=== PATIENT | male | born 2000 | race Caucasian/White ===

== ENCOUNTER 2023-07-20 19:12 | Emergency (ER) | payer OTHER ==
[~2023-07-20] VITALS: Ht 177.8 cm; Wt 163.0 kg
--- NOTE | ~2023-07-20 | EKG ---
[facility] [address] [facility], [place] [address] Draft EKG completed, results pending confirmation PATIENT NAME: JULIO RICHARD Electrocardiogram DATE OF : [birth year] PHYSICIAN: PRELIMINARY REPORT #: [id number] REPORT IS CONFIDENTIAL AND NOT TO BE RELEASED WITHOUT AUTHORIZATION
[2023-07-20 19:31] LABS: BASOPHILS 0.9 % (0-2); EOSINOPHILS 2.3 % (0-6); HEMATOCRIT 42.6 % (35.0-50.0); HEMOGLOBIN 14.4 g/dL (12.0-18.0); LYMPHOCYTES 21.1 % (24-44); MCH 28.2 (27-36); MCHC 33.8 g/dl (30-36); MCV 83.6 fl (81-99); NEUTROPHILS 69.7 % (39-80); PLATELET COUNT 249 K/uL (140-440); RBC 5.09 M/ul (4.3-5.7); RDW 12.7 (10.5-15.0)
[2023-07-20 19:49] LABS: INR 1.01 (0.80-1.30); PROTIME 12.6 Sec (11.2-14.2)
[2023-07-20 19:53] LABS: ALBUMIN 3.6 g/dL (3.4-5.0); ALBUMIN/GLOBULIN RATIO 1.03 (1.1-2.4); ANION GAP 11.7 (7-21); BILIRUBIN, TOTAL 0.3 ng/dL (0.2-1.0); BUN/CREATININE RATIO 16.98 (6.0-28.6); CREATININE, SERUM 1.06 mg/dL (0.70-1.30); MAGNESIUM 1.9 mg/dL (1.8-2.4); POTASSIUM 3.7 mmol/L (3.5-5.1); PROTEIN, TOTAL 7.1 g/dL (6.4-8.2)
[2023-07-20 20:19] VITALS: BP 123/80
== END 2023-07-20 20:21 | disposition home or self-care (01) ==
LOC: ED 19:12
PROVIDERS: Family Medicine
DX: R07.89 Other chest pain (principal); I10 Essential (primary) hypertension
CPT/HCPCS: 36415; 71045; 80053; 83735; 83880; 85025; 85610; 93005; 93010; 99285-25

== ENCOUNTER 2023-11-04 12:28 | Emergency (ER) | payer OTHER ==
[~2023-11-04] VITALS: Ht 177.8 cm; Wt 167.6 kg
[2023-11-04 14:09] VITALS: BP 142/92
== END 2023-11-04 14:10 | disposition home or self-care (01) ==
LOC: ED 12:28
DX: S09.90XA Unspecified injury of head, initial encounter (principal); W01.10XA Fall on same level from slipping, tripping and stumbling with subsequent striking against unspecified object, initial encounter; I10 Essential (primary) hypertension
CPT/HCPCS: 99283

== ENCOUNTER 2024-04-14 12:22 | Emergency (ER) | payer OTHER ==
[~2024-04-14] VITALS: Ht 177.8 cm; Wt 155.7 kg
[2024-04-14 15:14] LABS: BILIRUBIN, URINE NEGATIVE (negative); BLOOD/HGB, URINE TRACE-I (Negative); KETONE, URINE NEGATIVE (Negative); LEUK ESTERASE, URINE NEGATIVE (negative); NITRITE, URINE NEGATIVE (negative)
[2024-04-14 15:21] LABS: CRYSTALS, URINE NONE SEEN (0-1+); EPITHELIAL CELLS, URINE SQUAMOUS 1+ /lpf (0-1+)
[2024-04-14 15:22] LABS: BACTERIA, URINE RARE /hpf (negative); CASTS, URINE NONE SEEN \\lpf; COLLECTION TYPE, URINE CLEAN CATCH; REFLEX CULTURE, URINE No (No)
[2024-04-14] MEDS ORDERED: ONDANSETRON ODT8 MG PO (15:34)
[2024-04-14 15:40] VITALS: BP 123/76
== END 2024-04-14 15:40 | disposition home or self-care (01) ==
LOC: ED 12:22
PROVIDERS: Emergency Medicine
DX: M79.18 Myalgia, other site (principal); I10 Essential (primary) hypertension
CPT/HCPCS: 81001; 99283

== ENCOUNTER 2024-06-02 06:58 | Emergency (ER) | payer OTHER ==
[~2024-06-02] VITALS: Ht 177.8 cm; Wt 157.0 kg
[~2024-06-02 06:58] MED LIST: ONDANSETRON ODT8 MG PO
[2024-06-02] MEDS ORDERED: LIDOCAINE & ANTACID 35 ML BTL PO ONE (07:30)
[2024-06-02] MEDS ORDERED: ONDANSETRON 4 MG TAB ODT SL ONE (07:30)
[2024-06-02 08:22] LABS: BASOPHILS 0.8 % (0-2); EOSINOPHILS 2.9 % (0-6); HEMATOCRIT 41.7 % (35.0-50.0); HEMOGLOBIN 14.4 g/dL (12.0-18.0); LYMPHOCYTES 29.7 % (24-44); MCHC 34.6 g/dl (30-36); MCV 83.8 fl (81-99); MONOCYTES 5.9 % (0-12); NEUTROPHILS 60.7 % (39-80); PLATELET COUNT 272 K/uL (140-440); RBC 4.98 M/ul (4.3-5.7); RDW 12.9 (10.5-15.0)
[2024-06-02 08:40] LABS: ALBUMIN 3.9 g/dL (3.4-5.0); ALBUMIN/GLOBULIN RATIO 1.15 (1.1-2.4); ANION GAP 12.6 (7-21); BILIRUBIN, TOTAL 0.5 ng/dL (0.2-1.0); BUN/CREATININE RATIO 10.41 (6.0-28.6); CALCIUM 9.3 mg/dL (8.5-10.1); CREATININE, SERUM 0.96 mg/dL (0.70-1.30); POTASSIUM 3.6 mmol/L (3.5-5.1); PROTEIN, TOTAL 7.3 g/dL (6.4-8.2)
[2024-06-02] MEDS ORDERED: PEPCID20 MG PO (10:11)
[2024-06-02 10:25] VITALS: BP 113/78
== END 2024-06-02 10:26 | disposition home or self-care (01) ==
LOC: ED 06:58
PROVIDERS: Emergency Medicine
DX: R10.13 Epigastric pain (principal); I10 Essential (primary) hypertension
CPT/HCPCS: 36415; 80053; 83690; 85025; 99284; A9270

== ENCOUNTER 2024-08-14 17:56 | Emergency (ER) | payer OTHER ==
[~2024-08-14] VITALS: Ht 177.8 cm; Wt 154.7 kg
[~2024-08-14 17:56] MED LIST changes: +PEPCID20 MG PO
[2024-08-14] MEDS ORDERED: BUSPIRONE HCL7.5 MG PO (18:20)
[2024-08-14] MEDS ORDERED: OLANZapine 10 MG TABDIS PO ONE (19:30)
[2024-08-14] MEDS ORDERED: ZYPREXA10 MG PO (20:28)
[2024-08-14 20:33] VITALS: BP 137/81
== END 2024-08-14 20:36 | disposition home or self-care (01) ==
LOC: ED 17:56
DX: F41.9 Anxiety disorder, unspecified (principal); F22 Delusional disorders; I10 Essential (primary) hypertension; Z79.899 Other long term (current) drug therapy
CPT/HCPCS: 99284; A9270

== ENCOUNTER 2024-10-19 14:15 | Emergency (ER) | payer OTHER ==
[~2024-10-19] VITALS: Ht 177.8 cm; Wt 160.2 kg
[~2024-10-19 14:15] MED LIST changes: +BUSPIRONE HCL7.5 MG PO; +ZYPREXA10 MG PO
[2024-10-19] MEDS ORDERED: DOXYCYCLINE HYCLATE 100 MG CAP PO ONE (15:15)
[2024-10-19] MEDS ORDERED: CEFTRIAXONE SOD 500 MG VIAL IM ONE (15:15)
[2024-10-19] MEDS ORDERED: DOXYCYCLINE HY100 MG PO (15:45)
[2024-10-19 15:59] VITALS: BP 142/75
[2024-10-19 17:16] LABS: N. GONORRRHOEAE BY PCR NOT DETECTED (NOT DETECT)
== END 2024-10-19 16:00 | disposition home or self-care (01) ==
LOC: ED 14:15
PROVIDERS: Emergency Medicine
DX: R30.0 Dysuria (principal); I10 Essential (primary) hypertension
CPT/HCPCS: 96372; 99283-25; J0696

== ENCOUNTER 2024-10-26 22:22 | Emergency (ER) | payer OTHER ==
[~2024-10-26] VITALS: Ht 177.8 cm; Wt 156.0 kg
[~2024-10-26 22:22] MED LIST changes: +DOXYCYCLINE HY100 MG PO
--- OUTSIDE RECORDS SUMMARY | 2024-10-26 22:28 | XMS ---
PreManage Notification: JULIO RICHARD Security Insecticide Sprayer Events No recent Security Events currently on file CRITERIA MET - [facility] - 2 Visits in 30 Days CARE PROVIDERS -, [facility]ist: Independent Film Maker Current [place] PHONE: [phone] -, [place]- Dentist: Independent Film Maker Current Pending Sale To [facility] PHONE: [phone] [facility]: [facility] FAMILY PHONE: [phone] Izzy has no Care Guidelines for this patient. E.D. VISIT COUNT (12 MO.) [address] [facility] TOTAL 6 NOTE: Visits indicate total known visits. ED/UCC VISIT TRACKING (12 MO.) 10/26/2024 22:22 [facility] [place] TYPE: Emergency COMPLAINT: - DENTAL PAIN 10/19/2024 14:16 [facility] [place] TYPE: Emergency COMPLAINT: - STD EXPOSURE DIAGNOSES: - Dysuria - Essential (primary) hypertension 08/14/2024 17:56 [facility] [place] TYPE: Emergency COMPLAINT: - ANXIETY DIAGNOSES: - Anxiety disorder, unspecified - Delusional disorders - Essential (primary) hypertension - Other intermediate teacher (current) drug therapy 06/02/2024 06:59 [facility] [place] TYPE: Emergency COMPLAINT: - ABDOMINAL PAIN DIAGNOSES: - Epigastric pain - Essential (primary) hypertension 04/14/2024 12:22 [facility] [place] TYPE: Emergency COMPLAINT: - FLANK PAIN DIAGNOSES: - Essential (primary) hypertension - Low back pain, unspecified - Myalgia, other site 11/04/2023 12:29 [facility] [place] TYPE: Emergency COMPLAINT: - HEAD INJURY DIAGNOSES: - Essential (primary) hypertension - Fall on same level from slipping, tripping and stumbling with subsequent striking against unspecified object, initial encounter - Unspecified injury of head, initial encounter INPATIENT VISIT TRACKING (12 MO.) No inpatient visits to display in this time frame [email or web address]
[2024-10-26] MEDS ORDERED: AMOX TR-K CLV1 EAC1 PO (22:41)
[2024-10-26] MEDS ORDERED: NAPROSYN500 MG PO (22:41)
[2024-10-26] MEDS ORDERED: TRAMADOL HCL 50 MG HOME.PACK PO ONE (22:45)
[2024-10-26] MEDS ORDERED: AMOXICILLIN/CLAVULANATE K 875 MG HOME.PACK PO ONE (22:45)
[2024-10-26 22:54] VITALS: BP 163/100
== END 2024-10-26 22:54 | disposition home or self-care (01) ==
LOC: ED 22:22
DX: K02.9 Dental caries, unspecified (principal); I10 Essential (primary) hypertension; Z79.899 Other long term (current) drug therapy
CPT/HCPCS: 99282; A9270

== ENCOUNTER 2025-01-06 16:20 | Emergency (ER) | payer OTHER ==
[~2025-01-06] VITALS: Ht 177.8 cm; Wt 150.4 kg
[~2025-01-06 16:20] MED LIST changes: +AMOX TR-K CLV1 EAC1 PO; +NAPROSYN500 MG PO
--- OUTSIDE RECORDS SUMMARY | 2025-01-06 16:27 | XMS ---
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 - 2 Visits in 30 Days CARE PROVIDERS -, [facility] Dentist: Shrimp Packer Current [place] PHONE: [phone] -, [place]- Dentist: Shrimp Packer Current [facility] PHONE: [phone] [facility]: [facility] FAMILY PHONE: [phone] Izzy has no Care Guidelines for this patient. E.D. VISIT COUNT (12 MO.) 6 [facility] [place] [facility] TOTAL 7 NOTE: Visits indicate total known visits. ED/UCC VISIT TRACKING (12 MO.) 01/06/2025 16:20 [facility] [place] TYPE: Emergency COMPLAINT: - SUICIDAL THOUGHTS 12/13/2024 10:09 [facility] [place] TYPE: Emergency DIAGNOSES: - Tension-type headache, unspecified, not intractable - MIGRAINE 10/26/2024 22:22 [facility] [place] TYPE: Emergency COMPLAINT: - DENTAL PAIN DIAGNOSES: - Dental caries, unspecified - Essential (primary) hypertension - Other exterminator termite (current) drug therapy 10/19/2024 14:16 [facility] [place] TYPE: Emergency COMPLAINT: - STD EXPOSURE DIAGNOSES: - Dysuria - Essential (primary) hypertension 08/14/2024 17:56 [facility] [place] TYPE: Emergency COMPLAINT: - ANXIETY DIAGNOSES: - Anxiety disorder, unspecified - Delusional disorders - Essential (primary) hypertension - Other halfway (current) drug therapy 06/02/2024 06:59 [facility] [place] TYPE: Emergency COMPLAINT: - ABDOMINAL PAIN DIAGNOSES: - Epigastric pain - Essential (primary) hypertension 04/14/2024 12:22 [facility] [place] TYPE: Emergency COMPLAINT: - FLANK PAIN DIAGNOSES: - Essential (primary) hypertension - Low back pain, unspecified - Myalgia, other site INPATIENT VISIT TRACKING (12 MO.) No inpatient visits to display in this time frame [email or web address]
[2025-01-06 17:50] LABS: BASOPHILS 1.0 % (0.2-1.2); EOSINOPHILS 3.8 % (0.8-7.0); LYMPHOCYTES 35.2 % (21.8-53.1); MCH 28.6 PG (25.7-32.2); MCHC 33.0 g/dL (32.3-36.5); MCV 86.6 fL (79.0-92.2); MONOCYTES 5.1 % (5.3-12.2); NEUTROPHILS 54.8 % (34.0-67.9); RBC 5.00 M/uL (4.63-6.08)
[2025-01-06 18:19] LABS: ALCOHOL, MEDICAL <3 ng/dL (<3); ALT (SGPT) 45 U/L (14-59); AST (SGOT) 22 U/L (15-37); GLOMERULAR FILTRATION RATE,EST 126 mL/min (>60); PROTEIN, TOTAL 7.1 g/dL (6.4-8.2); TSH, 3RD GENERATION 1.767 uIU/mL (0.358-3.740); UREA NITROGEN 9 mg/dL (7-18)
[2025-01-06 18:56] LABS: BLOOD/HGB, URINE NEGATIVE (Negative); KETONE, URINE NEGATIVE (Negative); LEUK ESTERASE, URINE NEGATIVE (negative); NITRITE, URINE NEGATIVE (negative)
[2025-01-06 19:05] LABS: AMPHETAMINES, URINE NEGATIVE (NEGATIVE); BARBITURATES, URINE NEGATIVE (NEGATIVE); BENZODIAZEPINE, URINE NEGATIVE (NEGATIVE); CANNABINOID, URINE NEGATIVE (NEGATIVE); COCAINE, URINE NEGATIVE (NEGATIVE); ECSTASY, URINE NEGATIVE (NEGATIVE); FENTANYL, URINE NEGATIVE (NEGATIVE); METHADONE, URINE NEGATIVE (NEGATIVE); OPIATES, URINE NEGATIVE (NEGATIVE); OXYCODONE, URINE NEGATIVE (NEGATIVE); PHENCYCLIDINE, URINE NEGATIVE (NEGATIVE)
[2025-01-06] MEDS ORDERED: OLANZapine 10 MG TABDIS PO SCH (21:00)
[2025-01-07] MEDS ORDERED: DIVALPROEX SODIUM 500 MG TABLET.DR PO SCH (09:00)
[2025-01-07 10:37] VITALS: BP 126/83
== END 2025-01-07 10:39 | disposition home or self-care (01) ==
LOC: ED 16:20
PROVIDERS: Emergency Medicine
DX: R45.851 Suicidal ideations (principal); F32.A Depression, unspecified; F41.9 Anxiety disorder, unspecified; I10 Essential (primary) hypertension
CPT/HCPCS: 36415; 80053; 80307; 81003; 84443; 85025; 99284; A9270; G0480

== ENCOUNTER 2025-03-31 08:08 | Emergency (ER) | payer OTHER ==
[~2025-03-31] VITALS: Ht 177.8 cm; Wt 152.4 kg
[2025-03-31 08:44] LABS: BASOPHILS 0.9 % (0.2-1.2); EOSINOPHILS 2.2 % (0.8-7.0); LYMPHOCYTES 29.5 % (21.8-53.1); MCH 28.3 PG (25.7-32.2); MCHC 33.2 g/dL (32.3-36.5); MCV 85.2 fL (79.0-92.2); MONOCYTES 7.2 % (5.3-12.2); NEUTROPHILS 60.0 % (34.0-67.9); RBC 5.06 M/uL (4.63-6.08)
[2025-03-31 09:12] LABS: ALT (SGPT) 29.0 U/L (14-59); AST (SGOT) 13.0 U/L (15-37); GLOMERULAR FILTRATION RATE,EST 124.0 mL/min (>60); PROTEIN, TOTAL 6.9 g/dL (6.4-8.2); TSH, 3RD GENERATION 3.824 uIU/mL (0.358-3.740); UREA NITROGEN 10.0 mg/dL (7-18)
[2025-03-31 10:10] VITALS: BP 122/66
--- NOTE | 2025-04-01 12:31 | EKG ---
[facility] [address] [facility] [place], [place] [address] Signed Normal sinus rhythm Possible Lateral infarct (cited on or before 31-MAR-2025) Abnormal ECG When compared with ECG of 20-JUL-2023 19:11, No significant change was found Confirmed by MYRNA VAIL MD ([id number]) on 04/01/2025 12:31:31 PM Electronically Signed By: MYRNA VAIL 04/01/25 1231 PATIENT NAME: HILARYJULIO Electrocardiogram DATE OF : 00 PHYSICIAN: MYRNA VAIL REPORT #: [id number] REPORT IS CONFIDENTIAL AND NOT TO BE RELEASED WITHOUT AUTHORIZATION
== END 2025-03-31 10:15 | disposition home or self-care (01) ==
LOC: ED 08:08
PROVIDERS: Emergency Medicine
DX: R55 Syncope and collapse (principal); I10 Essential (primary) hypertension
CPT/HCPCS: 36415; 71045; 80053; 84436; 84439; 84443; 85025; 93005; 93010; 99284-25